=== PATIENT | male | born 1975 | race Caucasian/White ===

== ENCOUNTER 2018-12-22 15:20 | Emergency (ER) | payer BC, OTHER ==
[2018-12-22 15:55] LABS: Absolute Lymphocytes (CBC) 1.3 K/uL (0.7-4.9); Absolute Monocytes 0.4 K/uL (0.1-1.3); Absolute Neutrophil 5.5 K/uL (1.8-8.0); Basophils % 0.5 % (0-1.3); Eosinophils % 2.3 % (0-4.4); Hematocrit 45.2 % (39.6-49.0); Lymphocytes % 17.4 % (15.3-44.8); MPV 8.2 fL (7.6-11.3); Monocytes % 5.8 % (3.3-12.3); RBC Red Blood Cell Count 5.27 M/uL (4.33-5.43)
--- NOTE | 2018-12-22 16:32 | RAD REPORT ---
EXAM DESCRIPTION: CT - Head C Spine Cap Shanon Riggins - 12/22/2018 4:03 pm CLINICAL HISTORY: Head and neck injury with chest and abdominal pain status post fall. Head and neck pain . TECHNIQUE: Computed axial tomography of the head and cervical spine was obtained Computed axial tomography of the chest, abdomen and pelvis was obtained. 100 cc Isovue-300 was given intravenously coronal and sagittal reconstruction was performed. All CT scans are performed using dose optimization technique as appropriate and may include automated exposure control or mA/KV adjustment according to patient size. COMPARISON: CT abdomen 2015. FINDINGS: An intracranial bleed is not seen. The ventricles are normal in caliber. An extra-axial fl uid collection is not noted. A cervical fracture is not seen. No dislocation is seen. A mediastinal hematoma is not noted. A pleural effusion is not present. A lung contusion is not seen. The liver, spleen, pancreas, adrenals, kidneys and bladder do not demonstrate a dramatic injury IMPRESSION: 1. No acute intracranial abnormality is seen 2. A cervical fracture is not visualized. If the patient continues have symptoms to suggest intracran ial/spinal cord pathology then MRI would be recommended. 3. No traumatic injury involving the chest, abdomen or pelvis is seen.
[2018-12-22] MEDS ORDERED: MORPHINE 4 MG/ML SYR ONE (16:35)
[2018-12-22] MEDS ORDERED: ONDANSETRON 4 MG/2 ML VIAL ONE (16:36)
--- NOTE | 2018-12-22 16:37 | EDPHYS ---
Physician Documentation [facility] Name: Flo Singh Age: 43 yrs Sex: Male : 1975 Arrival Date: 12/22/2018 Time: 15:21 Bed 30 Private MD: ED Physician Benjamín Vargas HPI: 12/22 15:30 This 43 yrs old Male presents to ER via Ambulatory with complaints of Fall rn Injury. 15:30 Details of fall: The patient fell from a height, from a ladder, approximately 12 feet. rn Onset: The symptoms/episode began/occurred 1 hour(s) ago. Associated injuries: The patient sustained injury to the head, neck injury, injury to the low back, injury to the abdomen. Severity of symptoms: At their worst the symptoms were moderate, in the emergency department the symptoms are unchanged. The patient has not experienced similar symptoms in the past. The patient has not recently seen a physician. Reports fall from ladder, approx 12 feet indoors, landed on right side, reports thinks LOC for "split second", ambulatory with assistance, reports pain to right side of neck, right collarbone, low back and "between hips". Drove home on his own, then drove himself here. Not on blood thinners, no chronic medical conditions.. Historical: - Allergies: 15:27 No Known Drug Allergies; tw2 - Home Meds: 15:27 None [Active]; tw2 - PSHx: 15:27 None; tw2 - Immunization history:: Adult Immunizations. - Social history:: Smoking status: . - Immunization history: Last tetanus immunization: - up to date. - Ebola Screening: : Patient denies travel to an Ebola-affected area in the 21 days before illness onset. - Family history:: not pertinent. - Hospitalizations: : No recent hospitalization is reported. ROS: 15:30 Constitutional: Negative for fever, chills, and weight loss, Eyes: Negative for injury, rn pain, redness, and discharge, Neck: + neck pain Cardiovascular: Negative for chest pain, palpitations, and edema, Respiratory: Negative for shortness of breath, cough, wheezing, and pleuritic chest pain, Abdomen/GI: Negative for abdominal pain, nausea, vomiting, diarrhea, and constipation, Back: + low back pain and injury MS/Extremity: Negative for injury and deformity, Skin: Negative for injury, rash, and discoloration, Neuro: + mild headache, no focal weakness or paresthesias. Exam: 15:30 Constitutional: This is a well developed, well nourished patient who is awake, alert, rn and in no acute distress. In ccollar, appears uncomfortable. Head/Face: Normocephalic, atraumatic. Eyes: Pupils equal round and reactive to light, extra-ocular motions intact. Lids and lashes normal. Conjunctiva and sclera are non-icteric and not injected. Cornea within normal limits. Periorbital areas with no swelling, redness, or edema. ENT: no oral trauma Neck: in ccollar, no midline tenderness Chest/axilla: Normal chest wall appearance and motion. Nontender with no deformity. No lesions are appreciated. Cardiovascular: Regular rate and rhythm. No pulse deficits. Respiratory: Lungs have equal breath sounds bilaterally, clear to auscultation. No increased work of breathing, no retractions or nasal flaring. Abdomen/GI: soft, non-tender Back: + lumbar perispinal tenderness without stepoff MS/ Extremity: Pulses equal, no cyanosis. Neurovascular intact. Full, normal range of motion. Equal circumference. Neuro: Awake and alert, GCS 15, oriented to person, place, time, and situation. Cranial nerves II-XII grossly intact. Motor strength 5/5 in all extremities. Sensory grossly intact. Cerebellar exam normal. Vital Signs: 15:26 BP 123 / 83; Pulse 86; Resp 17; Temp 99.2(TE); Pulse Ox 99% on R/A; Weight 88.45 kg tw2 (R); Pain 10/10; 16:28 BP 127 / 59; Pulse 88; Resp 17; Pulse Ox 98% on R/A; ae4 16:47 BP 119 / 71; Pulse 85; Resp 16; Pulse Ox 96% on R/A; ae4 Montgomery Coma Score: 15:30 Eye Response: spontaneous(4). Verbal Response: oriented(5). Motor Response: obeys ss commands(6). Total: 15. Trauma Score (Adult): 15:30 Eye Response: spontaneous(1); Verbal Response: oriented(1); Motor Response: obeys ss commands(2); Systolic BP: > 89 mm Hg(4); Respiratory Rate: 10 to 29 per min(4); [place] Score: 15; Trauma Score: 12 MDM: 15:25 Patient medically screened. rn 16:35 Differential diagnosis: closed head injury, contusion, fracture, multiple trauma, rn sprain, strain. Data reviewed: vital signs, nurses notes, lab test result(s), radiologic studies, CT scan, and as a result, I will discharge patient. Counseling: I had a detailed discussion with the patient and/or guardian regarding: the historical points, exam findings, and any diagnostic results supporting the discharge/admit diagnosis, lab results, radiology results, the need for outpatient follow up, to return to the emergency department if symptoms worsen or persist or if there are any questions or concerns that arise at home. Special discussion: Based on the patient's history, exam and DX evaluation, there is no indication for emergent intervention or inpatient TX. It is understood by the patient/guardian that if the SXs persist or worsen they need to return immediately for re-evaluation. I discussed with the patient/guardian in detail that at this point there is no indication for admission to the hospital. It is understood, however, that if the symptoms persist or worsen the patient needs to return immediately for re-evaluation. 12/22 15:29 Order name: Basic Metabolic Panel; Complete Time: 16:13 rn 12/22 15:29 Order name: CBC with Diff; Complete Time: 16:13 rn 12/22 15:29 Order name: CT Traumagram (Head C Spine CAP W Con); Complete Time: 16:34 rn 12/22 15:29 Order name: Type And Screen; Complete Time: 16:34 rn 12/22 16:41 Order name: XRAY Elbow RIGHT 3 view; Complete Time: 17:55 rn 12/22 15:29 Order name: Labs collected and sent; Complete Time: 15:33 rn Administered Medications: 16:20 Drug: Zofran 4 mg Route: IVP; Site: right antecubital; ae4 16:49 Follow up: Response: No adverse reaction ae4 16:27 Drug: morphine 4 mg Route: IVP; Site: right antecubital; ae4 16:49 Follow up: Response: Pain is decreased ae4 Disposition: 12/22/18 16:36 Discharged to Home. Impression: Strain of muscle, fascia and tendon at neck level, Strain of muscle, fascia and tendon of lower back, Contusion of lower back and pelvis. - Condition is Stable. - Discharge Instructions: Back Pain, Adult, Contusion, Cervical Sprain, [id number]. - Prescriptions for Tylenol- Codeine #3 300-30 mg Oral Tablet - take 1 tablet by ORAL route every 6 hours As needed; 20 tablet. Cyclobenzaprine 10 mg Oral Tablet - take 1 tablet by ORAL route every 8 hours As needed; 20 tablet. - Medication Reconciliation Form, Thank You Letter, Antibiotic Education, Prescription Opioid Use form. - Follow up: Private Physician; When: As needed; Reason: Recheck today's complaints, Re-evaluation by your physician. - Problem is new. - Symptoms have improved. Signatures: Dispatcher [employer] EDMS Benjamín Vargas MD MD rn Chad, HERNÁN Edwards RN tw2 Anderson Lamb RN RN ae4 Corrections: (The following items were deleted from the chart) 17:58 16:36 12/22/2018 16:36 Discharged to Home. Impression: Strain of muscle, fascia and ae4 tendon at neck level; Strain of muscle, fascia and tendon of lower back; Contusion of lower back and pelvis. Condition is Stable. Forms are Medication Reconciliation Form, Thank You Letter, Antibiotic Education, Prescription Opioid Use. Follow up: Private Physician; When: As needed; Reason: Recheck today's complaints, Re-evaluation by your physician. Problem is new. Symptoms have improved. rn
--- NOTE | 2018-12-22 16:37 | ER ---
Nurse's Notes [facility] Name: Flo Singh Age: 43 yrs Sex: Male : 1975 Arrival Date: 12/22/2018 Time: 15:21 Bed 30 Private MD: Diagnosis: Strain of muscle, fascia and tendon at neck level;Strain of muscle, fascia and tendon of lower back;Contusion of lower back and pelvis Presentation: 12/22 15:25 Presenting complaint: Patient states: i was working on the ceiling standing on a ladder tw2 and it fell out from under me, i fell about 12 feet, onto concrete, landed on my elbow, right shoulder and hip, but i am having stomach or hip pains like a sharp stabbing pain in my pelvis area, i did loose consciousness but just a few seconds. Transition of care: patient was not received from another setting of care. Onset of symptoms was December 22, 2018. Risk Assessment: Do you want to hurt yourself or someone else? Patient reports no desire to harm self or others. Initial Sepsis Screen: Does the patient meet any 2 criteria? No. Patient's initial sepsis screen is negative. Does the patient have a suspected source of infection? No. Patient's initial sepsis screen is negative. Care prior to arrival: None. 15:25 Method Of Arrival: Ambulatory tw2 15:25 Acuity: PRADIP 2 tw2 15:31 Mechanism of Injury: Fall from ladder. Trauma event details: Injury occurred in the [facility], Injury occurred: at home. Injury occurred: December 22, 2018. Triage Assessment: 15:26 General: Appears uncomfortable, Behavior is cooperative, appropriate for age. Pain: tw2 Complains of pain in right shoulder, arm, pelvis. Trauma Activation: Alert Physician: ED Physician; Name: ; Notified At: ; Arrived At: Physician: General Surgeon; Name: ; Notified At: ; Arrived At: Physician: Radiology; Name: ; Notified At: ; Arrived At: Physician: Respiratory; Name: ; Notified At: ; Arrived At: Physician: Lab; Name: ; Notified At: ; Arrived At: Historical: - Allergies: 15:27 No Known Drug Allergies; tw2 - Home Meds: 15:27 None [Active]; tw2 - PSHx: 15:27 None; tw2 - Immunization history:: Adult Immunizations. - Social history:: Smoking status: . - Immunization history: Last tetanus immunization: - up to date. - Ebola Screening: : Patient denies travel to an Ebola-affected area in the 21 days before illness onset. - Family history:: not pertinent. - Hospitalizations: : No recent hospitalization is reported. Screenin:30 Abuse screen: Denies threats or abuse. Denies injuries from another. Tuberculosis ss screening: No symptoms or risk factors identified. 16:29 Fall Risk No fall in past 12 months (0 pts). No secondary diagnosis (0 pts). IV access ae4 (20 points). Ambulatory Aid- None/Bed Rest/Nurse Assist (0 pts). Gait- Normal/Bed Rest/Wheelchair (0 pts) Mental Status- Oriented to own ability (0 pts). 17:57 Nutritional screening: No deficits noted. ae4 Primary Survey: 15:30 NO uncontrolled hemorrhage observed. Breathing/Chest: Respiratory pattern: regular, ss Respiratory effort: spontaneous, unlabored, Breath sounds: clear, bilaterally. Chest inspection: symmetrical rise and fall of the chest. Circulation: Pulses: palpable right radial artery, right dorsalis pedis artery, left radial artery and left dorsalis pedis artery. Disability Alert. Exposure/Environment: All clothing and personal items were removed. Forensic evidence collection is not deemed to be indicated at this time. Items placed in patient belonging bag. There is no evidence of uncontrolled external bleeding. No obvious injuries are noted at this time. 16:28 Reassessment Breathing/Chest Respiratory pattern Regular Respiratory effort Spontaneous.ae4 Secondary Survey: 15:30 HEENT: No deficits noted. Head No injury/deformity Face No injury/deformity Eyes: No ss injury or deformity noted. Ears: clear Nose: clear Throat: No injury or deformity noted. is clear. Gastrointestinal: No deficits noted. Abdomen is soft, Bowel sounds present in all quadrants. Musculoskeletal: Circulation, motion, and sensation intact. Range of motion: intact in all extremities, Swelling absent. Assessment: 15:22 Reassessment: C collar placed by me. ss 15:31 General: Appears uncomfortable, Behavior is calm, cooperative, Denies fever, feeling ss ill, fatigue, chills. Pain: Complains of pain in suprapubic area, right lower quadrant and left lower quadrant, R shoulder, R side of neck, R clavicle, low back Pain currently is 8 out of 10 on a pain scale. at worst was 10 out of 10 on a pain scale. Quality of pain is described as aching, tender, Pain began suddenly, Is continuous, Aggravated by repositioning. Neuro: Level of Consciousness is awake, alert, obeys commands, Oriented to person, place, time, situation, Speech is normal, Facial symmetry appears normal, Pupils are PERRLA. Neuro: Reports brief LOC after fall. EENT: Ear canal clear on left ear and right ear Nares are clear Oral mucosa is moist. Throat is clear. Cardiovascular: Heart tones S1 S2 present Capillary refill < 3 seconds is brisk in bilateral fingers Pulses are palpable in right radial artery, right dorsalis pedis artery, left radial artery and left dorsalis pedis artery Rhythm is sinus rhythm Chest pain is denied. Respiratory: Airway is patent Respiratory effort is even, unlabored, Respiratory pattern is regular, symmetrical, Breath sounds are clear bilaterally. Denies cough, shortness of breath labored breathing, pain with respiration, pain with cough, pain with movement. GI: Reports lower abdominal pain, Patient currently denies bloating, diarrhea, epigastric pain, nausea, vomiting. : No signs and/or symptoms were reported regarding the genitourinary system. Derm: Skin is intact, is healthy with good turgor, Skin is pink, warm \T\ dry. normal. Derm: Denies tingling. Musculoskeletal: Circulation, motion, and sensation intact. Range of motion: intact in all extremities, Swelling absent. 16:48 Reassessment: Patient is awaiting radiology. Patient states feeling better. ae4 17:00 Reassessment: Radiology Technicians at bedside. ae4 Vital Signs: 15:26 BP 123 / 83; Pulse 86; Resp 17; Temp 99.2(TE); Pulse Ox 99% on R/A; Weight 88.45 kg tw2 (R); Pain 10/10; 16:28 BP 127 / 59; Pulse 88; Resp 17; Pulse Ox 98% on R/A; ae4 16:47 BP 119 / 71; Pulse 85; Resp 16; Pulse Ox 96% on R/A; ae4 Spring Coma Score: 15:30 Eye Response: spontaneous(4). Verbal Response: oriented(5). Motor Response: obeys ss commands(6). Total: 15. Trauma Score (Adult): 15:30 Eye Response: spontaneous(1); Verbal Response: oriented(1); Motor Response: obeys ss commands(2); Systolic BP: > 89 mm Hg(4); Respiratory Rate: 10 to 29 per min(4); [place] Score: 15; Trauma Score: 12 ED Course: 15:21 Patient arrived in ED. rg4 15:25 Benjamín Vargas MD is Attending Physician. rn 15:26 Triage completed. tw2 15:26 Arm band placed on. tw2 15:30 Patient has correct armband on for positive identification. Bed in low position. Call ss light in reach. Patient maintains SpO2 saturation greater than 95% on room air. Pulse ox on. NIBP on. 15:30 Patient maintains SpO2 saturation greater than 95% on room air. Thermoregulation: warm ss blanket given to patient. 15:32 Layla Talavera, RN is Primary Nurse. ca1 15:34 Anderson Lamb, HERNÁN is Primary Nurse. ae4 15:49 Inserted saline lock: 20 gauge in right antecubital area, using aseptic technique. ag Blood collected. 15:49 Basic Metabolic Panel Sent. ag 15:49 CBC with Diff Sent. ag 15:49 Type And Screen Sent. ag 16:04 CT Traumagram (Head C Spine CAP W Con) In Process Unspecified. EDMS 16:09 Patient moved back from [address]. ae4 17:08 XRAY Elbow RIGHT 3 view In Process Unspecified. EDMS 17:56 No provider procedures requiring assistance completed. IV discontinued, intact, ae4 bleeding controlled, No redness/swelling at site. Pressure dressing applied. Administered Medications: 16:20 Drug: Zofran 4 mg Route: IVP; Site: right antecubital; ae4 16:49 Follow up: Response: No adverse reaction ae4 16:27 Drug: morphine 4 mg Route: IVP; Site: right antecubital; ae4 16:49 Follow up: Response: Pain is decreased ae4 Intake: 17:57 PO: 0ml; Total: 0ml. ae4 Outcome: 16:36 Discharge ordered by . rn 17:56 Discharged to home ambulatory. ae4 17:56 Condition: stable 17:56 Discharge instructions given to patient, Instructed on discharge instructions, follow up and referral plans. medication usage, Demonstrated understanding of instructions, follow-up care. 17:58 Patient's length of stay was not longer than 2 hours. ae4 17:58 Patient left the ED. ae4 Signatures: Dispatcher [employer] EDMS Benjamín Vargas MD MD rn Smirch, Shelby, RN RN Sarina Allen Tara, RN RN tw2 Bebe Hammond rg4 Layla Talavera RN RN ca1 Anderson Lamb RN RN ae4
--- NOTE | 2018-12-22 17:44 | RAD REPORT ---
EXAM DESCRIPTION: RAD - Elbow Right 3 View - 12/22/2018 5:13 pm CLINICAL HISTORY: Right elbow pain status post injury FINDINGS: No fracture or dislocation is seen.
== END 2018-12-22 17:58 | disposition home or self-care (01) ==
LOC: ER 15:20
DX: S16.1XXA Strain of muscle, fascia and tendon at neck level, initial encounter (principal); S39.012A Strain of muscle, fascia and tendon of lower back, initial encounter; S39.013A Strain of muscle, fascia and tendon of pelvis, initial encounter; W17.89XA Other fall from one level to another, initial encounter; Y93.89 Activity, other specified; Y92.9 Unspecified place or not applicable
CPT/HCPCS: 36415; 70450; 71260; 72125; 74177; 80048; 85025; 86850; 86900; 86901; 96374; 96375; 99285; J2405

== ENCOUNTER 2024-03-23 11:29 | Inpatient (IN) | payer OTHER ==
[2024-03-23] MEDS ORDERED: ONDANSETRON 4 MG/2 ML VIAL ONE ×2 (13:14→14:48)
[2024-03-23] MEDS ORDERED: MORPHINE 4 MG/ML SYR ONE ×2 (13:14→14:48)
[2024-03-23] MEDS ORDERED: FAMOTIDINE 20 MG/2 ML VIAL IV ONE (13:14)
[2024-03-23] MEDS ORDERED: NA CHLORIDE 0.9% 1,000 ML ONE (13:14)
[2024-03-23 13:19] LABS: Absolute Eosinophils 0.1 K/uL (0-0.5); Absolute Lymphocytes (CBC) 1.1 K/uL (0.7-4.9); Absolute Monocytes 0.5 K/uL (0.1-1.3); Basophils % 0.3 % (0-1.3); Eosinophils % 1.3 % (0-4.4); Hematocrit 43.3 % (39.6-49.0); Hemoglobin 14.4 g/dL (13.6-17.9); Lymphocytes % 12.7 % (15.3-44.8); MCHC 33.3 g/dL (32.0-36.0); MCV 89.8 fL (80-100); MPV 7.8 fL (7.6-11.3); Monocytes % 5.3 % (3.3-12.3); Neutrophils % 80.4 % (41.7-73.7); Platelets 178 thou/uL (152-406); RBC Red Blood Cell Count 4.82 M/uL (4.33-5.43)
[2024-03-23 13:31] LABS: Specific Gravity 1.007 (1.005-1.030); Urine Bilirubin NEGATIVE (Negative); Urine Blood Negative (Negative); Urine Clarity Clear (Clear); Urine Color Light-Yellow (Yellow); Urine Glucose NEGATIVE (Negative); Urine Ketones NEGATIVE (Negative); Urine Microscopic Reflex YN NO UMIC; Urine Nitrite NEGATIVE (Negative); Urine Protein NEGATIVE (Negative); Urine Urobilinogen Normal (Normal)
[2024-03-23 13:35] LABS: Albumin 3.8 g/dL (3.4-5.0); Albumin/Globulin Ratio 1.1 (1.1-1.8); Anion Gap 8.7 mEq/L (5.0-15.0); Bilirubin Total 0.7 mg/dL (0.2-1.0); Globulin 3.6 g/dL (2.3-3.5); Potassium 3.7 mEq/L (3.5-5.1); Protein, Total 7.4 g/dL (6.4-8.2)
--- NOTE | 2024-03-23 14:31 | RAD REPORT ---
EXAM DESCRIPTION: CT - Abdomen Pelvis W Contrast - 03/23/2024 2:08 pm CLINICAL HISTORY: ABD PAIN COMPARISON: No comparisons TECHNIQUE: Thin cut axial CT imaging of the abdomen and pelvis was performed following intravenous a dministration of arthritic contrast. Multiplanar reformats were generated and reviewed. All CT scans are performed using dose optimization technique as appropriate and may include automated exposure control or mA/KV adjustment according to patient size. FINDINGS: No suspicious findings in the lung bases. The liver, spleen, adrenal glands, and pancreas show no suspicious findings. Gallbladder and biliary tree are also without suspicious finding. Symmetric renal function is seen with no hydronephrosis or suspicious renal mass. No dilated bowel loops. Mild distal colonic diverticulosis. Inflammatory changes surrounding an ill-d efined diverticulum along the posterior wall of the proximal sigmoid colon with focal wall thickening and adjacent fat stranding. No discrete extraluminal gas or fluid collections. No free air, free flu id or inflammatory stranding. No hernia, mass or bulky lymphadenopathy. Mild prostatomegaly and calci fications. The urinary bladder is without significant finding. No suspicious bony findings. IMPRESSION: Findings of acute sigmoid diverticulitis, without discrete extraluminal gas or abnormal collections.
[2024-03-23] MEDS ORDERED: CEFTRIAXONE 2000 MG/VIAL ONE (14:37)
[2024-03-23] MEDS ORDERED: METRONIDAZOLE 500mg IVPB 500 MG/100 ML BAG IV ONE (14:38)
[2024-03-23] MEDS ORDERED: CIPROFLOXACIN 400mg IV 400 MG/200 ML BAG IV ONE ×2 (14:38→20:00)
--- NOTE | 2024-03-23 15:22 | ER ---
Nurse's Notes [facility] Name: Flo Singh Age: 48 yrs Sex: Male : 1975 Arrival Date: 03/23/2024 Time: 11:29 Bed 17 Private MD: Diagnosis: Diverticulitis of large intestine without perforation or abscess without bleeding-SIGMOID;Abdominal tenderness;Acute abdomen Presentation: 03/23 11:45 Chief complaint: Patient states: Pelvic pain since yesterday with dysuria and nausea. ll1 Coronavirus screen: Client denies travel out of the [place] in the last 14 days. At this time, the client does not indicate any symptoms associated with coronavirus-19. Ebola Screen: Patient denies travel to an Ebola-affected area in the 21 days before illness onset. Initial Sepsis Screen: Does the patient meet any 2 criteria? No. Patient's initial sepsis screen is negative. Does the patient have a suspected source of infection? No. Patient's initial sepsis screen is negative. Risk Assessment: Do you want to hurt yourself or someone else? Patient reports no desire to harm self or others. Onset of symptoms was March 22, 2024. 11:45 Method Of Arrival: Ambulatory ll1 11:45 Acuity: PRADIP 3 ll1 Triage Assessment: 11:45 General: Appears uncomfortable, Behavior is calm. Pain: Complains of pain in pelvis ll1 Quality of pain is described as aching. : Reports burning with urination, pain in suprapubic area. Historical: - Allergies: 11:44 No Known Allergies; ll1 - PMHx: 11:44 None; ll1 - PSHx: 11:44 back surgery; ll1 - Immunization history:: Adult Immunizations up to date. - Infectious Disease History:: Denies. - Social history:: Smoking status: Reported history of juuling and/or vaping. - Family history:: not pertinent. Screenin:27 [facility] ED Fall Risk Assessment (Adult) History of falling in the last 3 months, tm6 including since admission No falls in past 3 months (0 pts) Confusion or Disorientation No (0 pts) Intoxicated or Sedated No (0 pts) Impaired Gait No (0 pts) Mobility Assist Device Used No (0 pt) Altered Elimination No (0 pt) Score/Fall Risk Level 0 - 2 = Low Risk Oriented to surroundings, Maintained a safe environment, Educated pt \T\ family on fall prevention, incl call for assistance when getting out of bed. Abuse screen: Denies threats or abuse. Denies injuries from another. Nutritional screening: No deficits noted. Tuberculosis screening: No symptoms or risk factors identified. Assessment: 13:27 General: Appears in no apparent distress. Behavior is calm, cooperative. Pain: tm6 Complains of pain in suprapubic area Pain does not radiate. Pain currently is 7 out of 10 on a pain scale. Quality of pain is described as sharp, Pain began 1 day ago. Neuro: Level of Consciousness is awake, alert, obeys commands, Oriented to person, place, time, situation. Cardiovascular: Reports chest pain, chest pain yesterday Patient's skin is warm and dry. Rhythm is regular. Respiratory: Airway is patent Respiratory effort is even, unlabored, Respiratory pattern is regular, symmetrical. GI: Abdomen is round Bowel sounds present X 4 quads. Abd is soft Abdomen is tender to palpation in suprapubic area Reports Pain is 7 out of 10 on a pain scale. : Reports difficulty urinating. EENT: No signs and/or symptoms were reported regarding the EENT system. Derm: No signs and/or symptoms reported regarding the dermatologic system. Musculoskeletal: No signs and/or symptoms reported regarding the musculoskeletal system. 15:00 Reassessment: Patient and/or family updated on plan of care and expected duration. Pain tm6 level reassessed. Patient is alert, oriented x 3, equal unlabored respirations, skin warm/dry/pink. 16:31 Reassessment: report faxed to [facility], confirmed by Breanne. tm6 Vital Signs: 11:45 BP 128 / 86; Pulse 92; Resp 17; Temp 99; Pulse Ox 100% ; Weight 111.13 kg; Height 6 ft. ll1 0 in. ; Pain 5/10; 13:32 BP 128 / 79; Pulse 87; Pulse Ox 99% on R/A; Pain 7/10; tm6 15:00 BP 133 / 79; Pulse 80; Pulse Ox 99% on R/A; Pain 9/10; tm6 16:58 BP 129 / 86; Pulse 81; Pulse Ox 100% ; Pain 5/10; tm6 11:45 Body Mass Index 33.23 (111.13 kg, 182.88 cm) ll1 11:45 Pain Scale: Adult ll1 13:32 Pain Scale: Adult tm6 15:00 Pain Scale: Adult tm6 16:58 Pain Scale: Adult tm6 ED Course: 11:31 Patient arrived in ED. mr 11:44 Cristofer Herman MD is Attending Physician. félix 11:46 Triage completed. ll1 11:46 Arm band placed on. ll1 12:56 Patient placed in an exam room, on a stretcher. ll1 13:04 Judi Sloan, RN is Primary Nurse. tm6 13:10 CBC with Diff Sent. tm6 13:10 CMP Sent. tm6 13:11 Lipase Sent. tm6 13:11 Inserted saline lock: 20 gauge in right antecubital area, using aseptic technique. tm6 Blood collected. Flushed with 10 mL NS. 13:26 Urinalysis w/ reflexes Sent. tm6 13:26 Lipase Sent. tm6 13:26 CMP Sent. tm6 13:27 Patient has correct armband on for positive identification. Bed in low position. Call tm6 light in reach. Side rails up X 1. Provided Education on: use of call french. Client placed on continuous cardiac and pulse oximetry monitoring. NIBP monitoring applied. belt buckle maker on. Pulse ox on. NIBP on. Door closed. Noise minimized. Lights dimmed. Warm blanket given. 13:27 EKG done, by ED staff, reviewed by Cristofer Herman MD. tm6 14:10 CT Abd/Pelvis - IV Contrast Only In Process Unspecified. EDMS 15:18 Armond Villanueva MD is Hospitalizing Provider. [facility] 16:59 No provider procedures requiring assistance completed. Patient admitted, IV remains in tm6 place. Administered Medications: 13:26 Drug: NS 0.9% IV 1000 ml IV at 1 bolus Per protocol; 1000 mL bolus Route: IV; Rate: 1 tm6 bolus; Site: right antecubital; 14:59 Follow up: Response: No adverse reaction; IV Status: Completed infusion; IV Intake: tm6 1000ml 13:26 Drug: Famotidine IVP 20 mg IVP once; dilute with 10 mL 0.9% NaCl; give over 2 minutes tm6 Route: IVP; Site: right antecubital; 15:00 Follow up: Response: No adverse reaction tm6 13:27 Drug: Ondansetron IVP 4 mg IVP once; over 2 minutes Route: IVP; Site: right antecubital;tm6 15:00 Follow up: Response: No adverse reaction tm6 13:27 Drug: morphine IVP or IV 4 mg IVP once over 4 mins Route: IVP; Infused Over: 4 mins; tm6 Site: right antecubital; 14:59 Follow up: Response: No adverse reaction; Pain is decreased tm6 14:46 Drug: Rocephin IV 2 grams IV at per protocol once; Given slow IV push per pharmarcy tm6 instructions Route: IV; Rate: per protocol; Site: right antecubital; 15:00 Follow up: Response: Nausea is increased tm6 14:46 Drug: metroNIDAZOLE IVPB 500 mg 100 ml IVPB at 200 ml/hr once over 30 mins Volume: 100 tm6 ml; Route: IVPB; Rate: 200 ml/hr; Infused Over: 30 mins; Site: right antecubital; 16:01 Follow up: Response: No adverse reaction; IV Status: Completed infusion; IV Intake: tm6 100ml 14:59 Drug: morphine IVP or IV 4 mg IVP once over 4 mins Route: IVP; Infused Over: 4 mins; tm6 Site: right antecubital; 16:02 Follow up: Response: No adverse reaction tm6 14:59 Drug: Ondansetron IVP 4 mg IVP once; over 2 minutes Route: IVP; Site: right antecubital;tm6 16:02 Follow up: Response: No adverse reaction tm6 16:02 Drug: Ciprofloxacin IVPB 400 mg 200 ml IVPB once over 60 mins Volume: 200 ml; Route: tm6 IVPB; Infused Over: 60 mins; Site: right antecubital; Medication: 13:27 VIS not applicable for this client. tm6 Intake: 14:59 IV: 1000ml; Total: 1000ml. tm6 16:01 IV: 100ml; Total: 1100ml. tm6 Outcome: 15:22 Decision to Hospitalize by Provider. félix 16:59 Admitted to Med/surg accompanied by tech, room 209, with chart, tm6 16:59 Condition: stable 16:59 Instructed on the need for admit, 16:59 Patient left the ED. tm6 Signatures: Dispatcher [employer] Cristofer Cooper MD MD cha Rivera [place], [facility] Reg mr John Paul Monica, RN RN ll1 Judi Sloan RN RN tm6
--- NOTE | 2024-03-23 15:22 | EDPHYS ---
Physician Documentation [facility] Name: Flo Singh Age: 48 yrs Sex: Male : 1975 Arrival Date: 03/23/2024 Time: 11:29 Bed 17 Private MD: ED Physician Cristofer Herman HPI: 03/23 15:13 This 48 yrs old Male presents to ER via Ambulatory with complaints of félix Abdominal Pain. 15:13 The patient presents with abdominal pain in the upper abdomen, in the lower abdomen, félix abdominal distention in the upper abdomen, in the lower abdomen. Onset: The symptoms/episode began/occurred 1 day(s) ago. The symptoms do not radiate. Associated signs and symptoms: Pertinent positives: nausea. The symptoms are described as constant, crampy. Modifying factors: The symptoms are alleviated by nothing, the symptoms are aggravated by movement, pressure, walking. Severity of pain: At its worst the pain was moderate in the emergency department the pain is unchanged. The patient has not experienced similar symptoms in the past. Historical: - Allergies: 11:44 No Known Allergies; ll1 - PMHx: :44 None; ll1 - PSHx: 11:44 back surgery; ll1 - Immunization history:: Adult Immunizations up to date. - Infectious Disease History:: Denies. - Social history:: Smoking status: Reported history of juuling and/or vaping. - Family history:: not pertinent. ROS: 15:13 Constitutional: Negative for fever, chills, and weight loss, Eyes: Negative for injury, félix pain, redness, and discharge, ENT: Negative for injury, pain, and discharge, Neck: Negative for injury, pain, and swelling, Cardiovascular: Negative for chest pain, palpitations, and edema, Respiratory: Negative for shortness of breath, cough, wheezing, and pleuritic chest pain, Back: Negative for injury and pain, : Negative for injury, bleeding, discharge, and swelling, MS/Extremity: Negative for injury and deformity, Skin: Negative for injury, rash, and discoloration, Neuro: Negative for headache, weakness, numbness, tingling, and seizure, Psych: Negative for depression, anxiety, suicide ideation, homicidal ideation, and hallucinations, Allergy/Immunology: Negative for hives, rash, and allergies, Endocrine: Negative for neck swelling, polydipsia, polyuria, polyphagia, and marked weight changes, Hematologic/Lymphatic: Negative for swollen nodes, abnormal bleeding, and unusual bruising, 15:13 Abdomen/GI: Positive for abdominal pain, nausea, vomiting, abdominal distension, of the right upper quadrant, left upper quadrant, right lower quadrant and left lower quadrant, Exam: 15:13 Constitutional: This is a well developed, well nourished patient who is awake, alert, félix and in no acute distress. Head/Face: Normocephalic, atraumatic. Eyes: Pupils equal round and reactive to light, extra-ocular motions intact. Lids and lashes normal. Conjunctiva and sclera are non-icteric and not injected. Cornea within normal limits. Periorbital areas with no swelling, redness, or edema. ENT: Nares patent. No nasal discharge, no septal abnormalities noted. Tympanic membranes are normal and external auditory canals are clear. Oropharynx with no redness, swelling, or masses, exudates, or evidence of obstruction, uvula midline. Mucous membranes moist. Neck: Trachea midline, no thyromegaly or masses palpated, and no cervical lymphadenopathy. Supple, full range of motion without nuchal rigidity, or vertebral point tenderness. No Meningismus. Chest/axilla: Normal chest wall appearance and motion. Nontender with no deformity. No lesions are appreciated. Cardiovascular: Regular rate and rhythm with a normal S1 and S2. No gallops, murmurs, or rubs. Normal PMI, no JVD. No pulse deficits. Respiratory: Lungs have equal breath sounds bilaterally, clear to auscultation and percussion. No rales, rhonchi or wheezes noted. No increased work of breathing, no retractions or nasal flaring. Back: No spinal tenderness. No costovertebral tenderness. Full range of motion. Male : Normal genitalia with no discharge or lesions. Skin: Warm, dry with normal turgor. Normal color with no rashes, no lesions, and no evidence of cellulitis. 15:24 ECG was reviewed by the Attending Physician. [facility] 15:25 ECG was reviewed by the Attending Physician. [facility] Vital Signs: 11:45 BP 128 / 86; Pulse 92; Resp 17; Temp 99; Pulse Ox 100% ; Weight 111.13 kg; Height 6 ft. ll1 0 in. ; Pain 5/10; 13:32 BP 128 / 79; Pulse 87; Pulse Ox 99% on R/A; Pain 7/10; tm6 15:00 BP 133 / 79; Pulse 80; Pulse Ox 99% on R/A; Pain 9/10; tm6 16:58 BP 129 / 86; Pulse 81; Pulse Ox 100% ; Pain 5/10; tm6 11:45 Body Mass Index 33.23 (111.13 kg, 182.88 cm) ll1 11:45 Pain Scale: Adult ll1 13:32 Pain Scale: Adult tm6 15:00 Pain Scale: Adult tm6 16:58 Pain Scale: Adult tm6 MDM: 11:44 Patient medically screened. félix 15:17 Differential diagnosis: diverticulitis, gastritis, Mesenteric ischemia or infarction, félix non-specific abd pain, pancreatitis, Peritonitis, Prostatitis, Pyelonephritis, Ureterolithiasis, urinary tract infection. Data reviewed: vital signs, nurses notes, lab test result(s), EKG, radiologic studies, CT scan. Consideration of Admission/Observation Patient was admitted/placed on observation. Escalation of care including admission/observation considered. I considered the following discharge prescriptions or medication management in the emergency department Medications were administered in the Emergency Department. See MAR. Independent interpretation of the following test(s) in the Emergency Department EKG: See my EKG interpretation above. Test considered but Not performed: Ultrasound NO ABD USG. Historians other than the Patient: Family Member: WELL INFORMED. Care significantly affected by the following chronic conditions: Obesity. Counseling: I had a detailed discussion with the patient and/or guardian regarding the historical points, exam findings, and any diagnostic results supporting the discharge/admit diagnosis, lab results, radiology results, the need for further work-up and treatment in the hospital. 03/23 11:46 Order name: CBC with Diff; Complete Time: 14:30 félix 03/23 11:46 Order name: CMP; Complete Time: 14:30 félix 03/23 11:46 Order name: Lipase; Complete Time: 14:30 félix 03/23 11:46 Order name: Urinalysis w/ reflexes; Complete Time: 14:30 félix 03/23 15:25 Order name: Troponin High Sensitivity; Complete Time: 16:56 félix 03/23 16:05 Order name: Urinalysis w/ reflexes EDMS 03/23 16:05 Order name: Basic Metabolic Panel EDMS 03/23 16:05 Order name: Basic Metabolic Panel EDMS 03/23 16:05 Order name: Basic Metabolic Panel EDMS 03/23 16:05 Order name: Basic Metabolic Panel EDMS 03/23 16:05 Order name: Basic Metabolic Panel EDMS 03/23 16:05 Order name: Basic Metabolic Panel EDMS 03/23 16:05 Order name: Basic Metabolic Panel EDMS 03/23 16:05 Order name: Basic Metabolic Panel EDMS 03/23 16:05 Order name: CBC with Automated Diff EDMS 03/23 16:05 Order name: CBC with Automated Diff EDMS 03/23 16:05 Order name: CBC with Automated Diff EDMS 03/23 16:05 Order name: CBC with Automated Diff EDMS 03/23 16:05 Order name: CBC with Automated Diff EDMS 03/23 16:05 Order name: CBC with Automated Diff EDMS 03/23 16:05 Order name: CBC with Automated Diff EDMS 03/23 16:05 Order name: CBC with Automated Diff EDMS 03/23 16:05 Order name: Magnesium EDMS 03/23 16:05 Order name: Magnesium EDMS 03/23 16:05 Order name: Magnesium EDMS 03/23 16:05 Order name: Magnesium EDMS 03/23 16:05 Order name: Magnesium EDMS 03/23 16:05 Order name: Magnesium EDMS 03/23 16:05 Order name: Magnesium EDMS 03/23 16:05 Order name: Magnesium EDMS 03/23 16:05 Order name: Phosphorus EDMS 03/23 16:05 Order name: Phosphorus EDMS 03/23 16:05 Order name: Phosphorus EDMS 03/23 16:05 Order name: Phosphorus EDMS 03/23 16:05 Order name: Phosphorus EDMS 03/23 16:05 Order name: Phosphorus EDMS 03/23 16:05 Order name: Phosphorus EDMS 03/23 16:05 Order name: Phosphorus EDMS 03/23 16:05 Order name: Troponin High Sensitivity EDMS 03/23 16:05 Order name: Troponin High Sensitivity EDMS 03/23 16:05 Order name: Troponin High Sensitivity EDMS 03/23 11:46 Order name: CT Abd/Pelvis - IV Contrast Only; Complete Time: 15:07 félix 03/23 11:46 Order name: EKG; Complete Time: 11:46 félix 03/23 15:25 Order name: EKG; Complete Time: 15:25 [facility] 03/23 16:05 Order name: CONS Physician Consult EDTN 03/23 11:46 Order name: IV Saline Lock; Complete Time: 13:10 [facility] 03/23 11:46 Order name: Labs collected and sent; Complete Time: 13:10 [facility] 03/23 11:46 Order name: EKG - Nurse/Tech; Complete Time: 13:26 [facility] 03/23 15:25 Order name: EKG - Nurse/Tech; Complete Time: 15:44 [facility] 03/23 15:52 Order name: NPO; Complete Time: 15:52 [facility] EC:25 Rate is 88 beats/min. Rhythm is regular. QRS [place] is Normal. VA interval is normal. QRS félix interval is normal. QT interval is normal. No Q waves. T waves are Normal. ST Segment is depressed in leads II, III, aVF. Clinical impression: NSR w/ Non-specific ST/T Changes. Interpreted by me. Reviewed by me. Administered Medications: 13:26 Drug: NS 0.9% IV 1000 ml IV at 1 bolus Per protocol; 1000 mL bolus Route: IV; Rate: 1 tm6 bolus; Site: right antecubital; 14:59 Follow up: Response: No adverse reaction; IV Status: Completed infusion; IV Intake: tm6 1000ml 13:26 Drug: Famotidine IVP 20 mg IVP once; dilute with 10 mL 0.9% NaCl; give over 2 minutes tm6 Route: IVP; Site: right antecubital; 15:00 Follow up: Response: No adverse reaction tm6 13:27 Drug: Ondansetron IVP 4 mg IVP once; over 2 minutes Route: IVP; Site: right antecubital;tm6 15:00 Follow up: Response: No adverse reaction tm6 13:27 Drug: morphine IVP or IV 4 mg IVP once over 4 mins Route: IVP; Infused Over: 4 mins; tm6 Site: right antecubital; 14:59 Follow up: Response: No adverse reaction; Pain is decreased tm6 14:46 Drug: Rocephin IV 2 grams IV at per protocol once; Given slow IV push per pharmarcy tm6 instructions Route: IV; Rate: per protocol; Site: right antecubital; 15:00 Follow up: Response: Nausea is increased tm6 14:46 Drug: metroNIDAZOLE IVPB 500 mg 100 ml IVPB at 200 ml/hr once over 30 mins Volume: 100 tm6 ml; Route: IVPB; Rate: 200 ml/hr; Infused Over: 30 mins; Site: right antecubital; 16:01 Follow up: Response: No adverse reaction; IV Status: Completed infusion; IV Intake: tm6 100ml 14:59 Drug: morphine IVP or IV 4 mg IVP once over 4 mins Route: IVP; Infused Over: 4 mins; tm6 Site: right antecubital; 16:02 Follow up: Response: No adverse reaction tm6 14:59 Drug: Ondansetron IVP 4 mg IVP once; over 2 minutes Route: IVP; Site: right antecubital;tm6 16:02 Follow up: Response: No adverse reaction tm6 16:02 Drug: Ciprofloxacin IVPB 400 mg 200 ml IVPB once over 60 mins Volume: 200 ml; Route: tm6 IVPB; Infused Over: 60 mins; Site: right antecubital; Disposition Summary: 03/23/24 15:22 Hospitalization Ordered Notes: Hospitalization Status: Inpatient Admission félix Provider: Armond Villanueva cha Location: Telemetry/MedSurg (Inpatient) félix Condition: Fair félix Problem: new félix Symptoms: are unchanged félix Bed/Room Type: [facility] Room Assignment: 209(03/23/24 16:15) ll1 Diagnosis - Diverticulitis of large intestine without perforation or abscess without bleeding - félix SIGMOID - Abdominal tenderness félix - Acute abdomen félix Forms: - Medication Reconciliation Form félix - SBAR form félix - Leadership Thank You Letter félix Signatures: Dispatcher [employer] EDCristofer Dixon MD MD cha Lewis, Lynsay, RN RN ll1 Judi Sloan RN RN tm6 Corrections: (The following items were deleted from the chart) 11:46 11:46 CBC+H.LAB.BRZ ordered. EDMS EDMS 11:46 11:46 COMPREHENSIVE METABOLIC PANEL+C.LAB.BRZ ordered. EDMS EDMS 11:46 11:46 LIPASE+C.LAB.BRZ ordered. EDMS EDMS 11:46 11:46 Urinalysis+U.LAB.BRZ ordered. EDMS EDMS 15:25 15:25 Troponin High Sensitivity+C.LAB.BRZ ordered. EDMS EDMS 15:26 15:24 Rate is 88 beats/min. Rhythm is regular. QRS [place] is Normal. [place] interval is félix normal. QRS interval is normal. QT interval is normal. No Q waves. T waves are Normal. Clinical impression: NSR w/ Non-specific ST/T Changes and No evidence of ischemia. Interpreted by me. Reviewed by me. [facility] 16:15 15:22 félix ll1
--- NOTE | 2024-03-23 15:44 | P.HP ---
Certification for Inpatient Patient admitted to: Inpatient With expected LOS: >2 Midnights Patient will require the following post-hospital care: None Practitioner: I am a practitioner with admitting privileges, knowledge of patient current condition, hospital course, and medical plan of care. Services: Services provided to patient in accordance with Admission requirements found in Title 42 Section 412.3 of the Code of Federal Regulations Patient History Date of Service: 03/23/24 Reason for admission: Acute diverticulitis, acute abdomen History of Present Illness: Flo Singh is a 48 year old male with no significant past medical history who presents to the ED with chief complaint of upper and lower abdominal distention and pain that started 1 day ago. He reports standing up from the couch to plug in his computer when severe lower abdominal pain occurred causing his to lay down in bed. He reports trying ex-lax without relief. CT abdomen pelvis with contrast reports "Findings of acute sigmoid diverticulitis, without discrete extraluminal gas or abnormal collections." He states he had a clean colonoscopy a few years ago and was examined early since his father of colon cancer. He also has family history of heart attacks, his father's fifth heart attack started with abdominal pain and he was worried he was having a heart attack. He reports PND, exertional SOB and occasional leg swelling, but not exertional SOB. Laboratory evaluation unremarkable, initial vital BP 128 / 86; Pulse 92; Resp 17, temp 99; Pulse Ox 100%, lung sounds clear bilaterally on room air, afebrile. Flo will be admitted to hospitalist service for further treatment of acute sigmoid diverticulitis, Dr. Finn consulted. Allergies No Known Drug Allergies Allergy (Unverified 06/25/14 00:48) Unknown - Past Medical/Surgical History Past Medical History: Patient denies medical history Past Surgical History: Patient denies surgical history - Social History Smoking Status: Current every day smoker Alcohol use: Yes CD- Drugs: No Review of Systems General: Chills, Sweats Respiratory: Shortness of Breath Gastrointestinal: Abdominal Pain Physical Examination - Physical Exam General: Alert, In no apparent distress, Oriented x3 HEENT: Atraumatic, Normocephalic, PERRLA Neck: Supple, 2+ carotid pulse no bruit, JVD not distended Respiratory: Clear to auscultation bilaterally, Normal air movement Cardiovascular: No edema, Normal pulses, Regular rate/rhythm, Normal S1 S2 Capillary refill: <2 Seconds Gastrointestinal: Normal bowel sounds, Distended, Tenderness Musculoskeletal: No clubbing Integumentary: No rashes - Studies Laboratory Data (last 24 hrs) 03/23/24 03/23/24 13:10 13:10 WBC 8.70 Hgb 14.4 Hct 43.3 Plt Count 178 Sodium 136 Potassium 3.7 BUN 9 Creatinine 0.99 Glucose 101 Total Bilirubin 0.7 AST 12 L ALT 37 Alkaline Phosphatase 77 Lipase 26 Assessment and Plan - Plan Assessment and plan Acute sigmoid diverticulitis without perforation or abscess Lower abdominal pain Nausea -Dr. Finn consulted -IV fluids -N.p.o. -Cipro and Flagyl -Pain control antiemetics -Continuous telemetry -Reports clean colonoscopy several years ago, father of colon cancer Substance abuse -Cigarettes, vape, and drinking beer -Cessation education provided DVT PPx SCDs Full code LOS 2 days Discharge Plan: Home Plan to discharge in: 48 Hours - Advance Directives Does patient have a Living Will: No Does patient have a Durable POA for Healthcare: No
[2024-03-23] MEDS ORDERED: NA CHLORIDE 0.9% 100 ML ONE (15:54)
[2024-03-23] MEDS ORDERED: PIPERACIL/TAZO 4.5 GM VIAL IV ONE (15:54)
[2024-03-23] MEDS ORDERED: SODIUM CHLORIDE 0.9% 10ML INJ IV PRN (15:59)
[2024-03-23] MEDS ORDERED: MORPHINE 4 MG/ML SYR IV PRN (16:08)
[2024-03-23] MEDS ORDERED: ONDANSETRON 4 MG/2 ML VIAL IV PRN (16:08)
[2024-03-23] MEDS: PANTOPRAZOLE 40 MG INJ IVP SCH (17:21)
[2024-03-23] MEDS: NA CHLORIDE 0.9% 1,000 ML IV SCH (17:21)
[2024-03-23] MEDS: MORPHINE 4 MG/ML SYR IV ONE (17:22)
[2024-03-23 17:26] VITALS: O2SAT 100
[2024-03-23 17:29] VITALS: BMI 33.2
[2024-03-23] MEDS: MORPHINE 4 MG/ML SYR IV PRN (17:36)
--- NOTE | 2024-03-23 22:29 | P.CNS ---
Date of Consult: 03/23/24 PC: I was asked to see this 48-year-old gentleman in regards to his sudden onset lower abdominal pain. HPC: Patient was at home yesterday, went to stand up, and experienced severe lower abdominal pain. Doubled him over. Over the last 24 hours, pain is intensified and he came to the emergency room for evaluation. PSHx: States he is otherwise a healthy male. Never had pain like this before. Has had a colonoscopy in the past, but did not show anything. PMHx: Negative Social Hx: Allergic to ceftriaxone Sys R: No cough, wheeze, shortness of breath. No chest pain or palpitations. No urinary complaints O/E: Awake alert vital signs are stable HEENT: Negative Chest: Air entry equal bilaterally Abd: Tender in the suprapubic area, has some guarding there. Does not have generalized peritoneal signs. [place]: Intact Data: CT scan demonstrates acute diverticulitis Impression: Patient has acute diverticulitis Plan: The patient will be given just small sips of water for now. We will keep him on antibiotics and pain medicine with IV fluids. He will be followed with serial exams. He does not require acute intervention at this time.
[2024-03-23] MEDS ORDERED: METRONIDAZOLE 500mg IVPB 500 MG/100 ML BAG IV SCH (23:00)
[2024-03-24] MEDS: METRONIDAZOLE 500mg IVPB 500 MG/100 ML BAG IV SCH (00:28)
[2024-03-24 06:29] LABS: Absolute Eosinophils 0.1 K/uL (0-0.5); Absolute Lymphocytes (CBC) 1.3 K/uL (0.7-4.9); Absolute Monocytes 0.4 K/uL (0.1-1.3); Absolute Neutrophil 5.2 K/uL (1.8-8.0); Basophils % 0.4 % (0-1.3); Eosinophils % 1.9 % (0-4.4); Hematocrit 38.2 % (39.6-49.0); Hemoglobin 13.1 g/dL (13.6-17.9); Lymphocytes % 18.6 % (15.3-44.8); MCH 30.5 pg (27.0-35.0); MCHC 34.3 g/dL (32.0-36.0); MCV 88.9 fL (80-100); MPV 7.5 fL (7.6-11.3); Monocytes % 6.1 % (3.3-12.3); Nucleated Red Blood Cells % 0.1 % (0-0); Platelets 162 thou/uL (152-406); RBC Red Blood Cell Count 4.29 M/uL (4.33-5.43); Red Cell Distribution Width 13.6 % (12.1-15.2)
[2024-03-24 06:48] LABS: Anion Gap 6.8 mEq/L (5.0-15.0); Phosphorus 2.6 mg/dL (2.5-4.9); Potassium 3.8 mEq/L (3.5-5.1); Troponin High Sensitivity 4.7 pg/mL (<58.9)
--- NOTE | 2024-03-24 11:55 | P.PN ---
Date of Service: 03/24/24 Subjective Awake and feeling better Complaining of headache Abdominal pain improved No nausea ROS 10 point ROS as noted above, otherwise negative Physical Exam General: Alert and Oriented x3, In no apparent distress, afebrile HEENT: Atraumatic, Normocephalic, PERRLA Neck: Supple, 2+ carotid pulse no bruit, JVD not distended Respiratory: Clear to auscultation bilaterally, symmetrical chest wall movement, on room air Cardiovascular: No edema, RRR, Normal S1 S2, no murmur noted Capillary refill: <2 Seconds Gastrointestinal: Normal bowel sounds, soft on palpation, distended, Tenderness Musculoskeletal: No clubbing Integumentary: No rashes Vitals Reviewed Problem list Acute sigmoid diverticulitis without perforation or abscess Lower abdominal pain Nausea Substance abuse Assessment and Plan Acute sigmoid diverticulitis without perforation or abscess Lower abdominal pain Nausea -Dr. Finn following, no surgery needed -continue IV fluids -N.p.o. with sips of water -continue Cipro and Flagyl -Pain control/ antiemetics -Continuous telemetry -Reports clean colonoscopy several years ago, father of colon cancer Substance abuse -Cigarettes, vape, and drinking beer -Cessation education provided DVT PPx SCDs Full code LOS 2 days Discharge Plan: Home Plan to discharge in: 48 Hours
--- NOTE | 2024-03-24 15:02 | P.PN ---
Date of Service: 03/24/24 S: Patient in good spirits, abdomen feels much better than yesterday, still having some pain but is much more manageable. Has been passing gas, no bowel movements yet. O: Vital signs are stable, white cell count has gone down slightly. His abdomen still shows some suprapubic tenderness, but markedly improved since yesterday evening's exam. A: Responding well to current therapy P: Advance diet slightly today. Encourage ambulation. Will order an incentive spirometer for patient. Repeat CBC and clinical exam in AM. Patient seems happy with his progress.
[2024-03-24] MEDS ORDERED: BISACODYL E.C. 5 MG TAB PO PRN (15:39)
[2024-03-24] MEDS: HYDROCODONE/APAP 7.5/325 MG TAB PO PRN (16:02)
[2024-03-24] MEDS ORDERED: ZOLPIDEM TARTRATE 5 MG TABLET PO PRN (20:28)
[2024-03-25 04:59] LABS: Absolute Eosinophils 0.2 K/uL (0-0.5); Absolute Lymphocytes (CBC) 1.2 K/uL (0.7-4.9); Absolute Monocytes 0.3 K/uL (0.1-1.3); Absolute Neutrophil 2.8 K/uL (1.8-8.0); Basophils % 0.4 % (0-1.3); Eosinophils % 3.7 % (0-4.4); Hematocrit 36.6 % (39.6-49.0); Hemoglobin 12.3 g/dL (13.6-17.9); Lymphocytes % 26.4 % (15.3-44.8); MCH 29.8 pg (27.0-35.0); MCHC 33.5 g/dL (32.0-36.0); MPV 7.8 fL (7.6-11.3); Monocytes % 6.8 % (3.3-12.3); Neutrophils % 62.7 % (41.7-73.7); Platelets 160 thou/uL (152-406); RBC Red Blood Cell Count 4.11 M/uL (4.33-5.43); Red Cell Distribution Width 13.3 % (12.1-15.2)
[2024-03-25 05:16] LABS: Anion Gap 6.8 mEq/L (5.0-15.0); Magnesium 1.9 mg/dL (1.6-2.4); Phosphorus 2.2 mg/dL (2.5-4.9); Potassium 3.8 mEq/L (3.5-5.1)
[2024-03-25] MEDS: POTASSIUM CL SA 10 MEQ TAB PO ONE (08:23)
[2024-03-25] MEDS: POTASS/SODIUM PHOSPHATE 1 PKT POWD.PACK PO SCH (08:24)
--- NOTE | 2024-03-25 09:26 | RAD REPORT ---
EXAM DESCRIPTION: CTAbdomen Pelvis W Contrast - 03/25/2024 8:49 am CLINICAL HISTORY: Abdominal pain. diverticulitis COMPARISON: Abdomen Pelvis W Contrast dated 03/23/2024 TECHNIQUE: Venous phase CT imaging of the abdomen and pelvis was performed with 100 ml non-ionic IV contrast. All CT scans are performed using dose optimization technique as appropriate and may include automated exposure control or mA/KV adjustment according to patient size. FINDINGS: The lung bases are clear.Mild thickening of the distal esophagus. The liver, spleen, pancreas, adrenal glands and kidneys are within normal limits. No bowel obstruction, free air, free fluid or abscess. Since the 03/23/2024 study previously noted di verticulitis has moderately improved. Mild inflammation persists in the region. No abscess. The appen isauro is normal. No evidence of significant lymphadenopathy. No suspicious bony findings. IMPRESSION: Since the 03/23/2024 study, there has been moderate improvement in left lower quadrant s igmoid diverticulitis. No complication is visualized. Follow-up nonemergent colonoscopy would be advised.
--- NOTE | 2024-03-25 10:19 | P.PN ---
Date of Service: 03/25/24 Subjective Feeling better this AM CT scan showing improvement Will increase diet to fiber restrictive and monitor tolerance ROS 10 point ROS as noted above, otherwise negative Physical Exam General: AAO x3, NAD afebrile HEENT: Atraumatic, Normocephalic, PERRLA Neck: Supple, 2+ carotid pulse no bruit, JVD not distended Respiratory: Clear to auscultation bilaterally, nonlabored breathing, on RA Cardiovascular: No edema, Regular rate and rhythm, Normal S1 S2, no murmur noted Capillary refill: <2 Seconds Gastrointestinal: Normal active bowel sounds, soft on palpation, distended, Tenderness Musculoskeletal: No clubbing Integumentary: No rashes Vitals Reviewed Problem list Acute sigmoid diverticulitis without perforation or abscess Lower abdominal pain Nausea Substance abuse Assessment and Plan Acute sigmoid diverticulitis without perforation or abscess Lower abdominal pain Nausea -Dr. Finn following, no surgery needed -continue IV fluids -N.p.o. advanced to FLD and tolerated well, advance to fiber restrictive at lunch -continue Cipro and Flagyl -Pain control/ antiemetics -Continuous telemetry -Reports clean colonoscopy several years ago, father of colon cancer -Follow up for colonoscopy Substance abuse -Cigarettes, vape, and drinking beer -Cessation education provided DVT PPx SCDs Full code LOS 2 days Discharge Plan: Home Plan to discharge in: 48 Hours
--- NOTE | 2024-03-25 10:42 | P.DS ---
Admission Date: 03/23/24 Discharge Date: 03/25/24 Disposition: ROUTINE DISCHARGE Discharge Condition: FAIR Reason for Admission: Acute diverticulitis, acute abdomen Brief History of Present Illness: Diagnosis Acute sigmoid diverticulitis without perforation or abscess Lower abdominal pain Nausea Substance abuse HPI 03/23/24 Flo Sinhg is a 48 year old male with no significant past medical history w ho presents to the ED with chief complaint of upper and lower abdominal distention and pain that started 1 day ago. He reports standing up from the couch to plug in his computer when severe lower abdominal pain occurred causing his to lay down in bed. He reports trying ex-lax without relief. CT abdomen pelvis with contrast reports "Findings of acute sigmoid diverticulitis, without discrete extraluminal gas or abnormal collections." He states he had a clean colonoscopy a few years ago and was examined early since his father of colon cancer. He also has family history of heart attacks, his father's fifth heart attack started with abdominal pain and he was worried he was having a heart attack. He reports PND, exertional SOB and occasional leg swelling, but not exertional SOB. Laboratory evaluation unremarkable, initial vital BP 128 / 86; Pulse 92; Resp 17, temp 99; Pulse Ox 100%, lung sounds clear bilaterally on room air, afebrile. Flo will be admitted to hospitalist service for further treatment of acute sigmoid diverticulitis, Dr. Finn consulted. Hospital Course: Flo Singh is a pleasant 48 year old male with a past medical history sign ificant for no significant who was admitted to the [facility] on 03/23/24 for severe Abdominal pain. Flo presented to the ED with complaint of severe lower abdominal pain. CT abd/pelvis showed sigmoid diverticulitis. He was made NPO and Dr. Finn was consulted. Dr. Finn deteremted that no surgical intervention was needed and he was able to advance his diet successfully to FLD. He has been ambulating in the hallway independently and tolerating IV antibiotics. He reports pain is well controlled and has decreased some. His repeat CT scan this morning (03/25) shows some improvement and he will be discharged with plans to follow up with Dr. Figueroa for a colonoscopy and closer management. Substance abuse education provided. On 03/25/24, Flo was seen on morning rounds and deemed medically stable for discharge. Flo was discharged with instructions to schedule follow-up appointments with Dr. Figueroa and PCP. Flo was provided prescriptions for [place], flagyl, and cipro. Physical Exam General: AAO x3, NAD afebrile HEENT: Atraumatic, Normocephalic, PERRLA Neck: Supple, 2+ carotid pulse no bruit, JVD not distended Respiratory: Clear to auscultation bilaterally, nonlabored breathing, on RA Cardiovascular: No edema, Regular rate and rhythm, Normal S1 S2, no murmur noted Capillary refill: <2 Seconds Gastrointestinal: Normal active bowel sounds, soft on palpation, distended, Tenderness Musculoskeletal: No clubbing Integumentary: No rashes Vital Signs/Physical Exam: Temp Pulse Resp BP Pulse Ox 97.1 F 65 18 104/59 L 98 03/25/24 08:00 03/25/24 08:00 03/25/24 08:00 03/25/24 08:00 03/25/24 08:00 Laboratory Data at Discharge: WBC 4.40 thou/uL (4.3-10.9) 03/25/24 04:38 Hgb 12.3 g/dL (13.6-17.9) L 03/25/24 04:38 Hct 36.6 % (39.6-49.0) L 03/25/24 04:38 Plt Count 160 thou/uL (152-406) 03/25/24 04:38 Sodium 139 mEq/L (136-145) 03/25/24 04:38 Potassium 3.8 mEq/L (3.5-5.1) 03/25/24 04:38 BUN 9 mg/dL (7-18) 03/25/24 04:38 Creatinine 0.87 mg/dL (0.70-1.30) 03/25/24 04:38 Glucose 88 mg/dL (74-106) 03/25/24 04:38 Phosphorus 2.2 mg/dL (2.5-4.9) L 03/25/24 04:38 Magnesium 1.9 mg/dL (1.6-2.4) 03/25/24 04:38 Total Bilirubin 0.7 mg/dL (0.2-1.0) 03/23/24 13:10 AST 12 U/L (15-37) L 03/23/24 13:10 ALT 37 U/L (16-61) 03/23/24 13:10 Alkaline Phosphatase 77 U/L (45-117) 03/23/24 13:10 Lipase 26 U/L (13-75) 03/23/24 13:10 Home Medications: Ciprofloxacin HCl [Cipro] 500 mg PO BID #24 tab 03/25/24 Hydrocodone 7.5/APAP 325 [[place] 7.5/325 mg*] 1 tab PO Q6H PRN #15 tab 03/25/24 metroNIDAZOLE [Flagyl] 500 mg PO Q8H #36 tab 03/25/24 New Medications: Ciprofloxacin HCl [Cipro] 500 mg PO BID #24 tab metroNIDAZOLE [Flagyl] 500 mg PO Q8H #36 tab Hydrocodone 7.5/APAP 325 [[place] 7.5/325 mg*] 1 tab PO Q6H PRN #15 tab PRN Reason: Pain Scale 5-7 (Moderate) Physician Discharge Instructions: Flo Singh was treated for sigmoid diverticulitis. Improvement was seen on the CT abd/pelvis shows some improvement. Continue with cautious diet advancement. Full liquid to fiber restrictive/GI soft. Please see Dr. Figueroa to schedule a colonoscopy, typically required after six weeks of healing. But please stay in contact with Dr. Figueroa's office close monitoring. 1. Please call and schedule a follow-up appointment with your PCP in 3-5 days - Please follow-up with your PCP for medication refills/adjustments 2. Please call and schedule a follow-up appointment with Dr. Figueroa in 3-5 days 3. Continue fiber restricted diet, soft GI 4. activity restrictions, do not lift greater than 10 pounds 5. Return to the ED if symptoms worsen New medications [place] 7.5 mg p.o. every 6 hours Ciprofloxacin 500 mg p.o. twice daily x 12 days Flagyl 500 mg p.o. every 8 hours x 12 days Diet: Slow advan Activity: No lifting more than 10 lbs Followup: Kym Vaughn FNP [Primary Care Provider] - Rajeev Figueroa MD [ASSOCIATE-ACTIVE - CAN ADMIT] -
[2024-03-25 11:57] VITALS: BP 100/59; TEMP 97
--- NOTE | 2024-03-25 17:04 | EKG ---
Test Date: 2024-03-23 Test Time: 13:20:03 [place] Cutter: YAMIL MEASUREMENT RESULTS: Intervals: Rate: 88 NH: 178 QRSD: 86 QT: 338 QTc: 408 [place]: P: 47 NH: 178 QRS: 51 T: -12 INTERPRETIVE STATEMENTS: Normal sinus rhythm T wave abnormality, consider inferior ischemia Abnormal ECG No previous ECG available for comparison Electronically Signed On 03-25-24 17:00:05 CDT by Nick Montelongo
== END 2024-03-25 13:40 | disposition home or self-care (01) | DRG 392 ==
LOC: ER 11:29 → ERHOLD 15:59 → 2ND 16:47
PROVIDERS: ADMIT Internal Medicine; ATTEND Internal Medicine
DX: K57.32 Diverticulitis of large intestine without perforation or abscess without bleeding (principal); F17.210 Nicotine dependence, cigarettes, uncomplicated; R11.0 Nausea
CPT/HCPCS: 36415; 74177; 80048; 80053; 81003; 83690; 83735; 84100; 84484; 85025; 93005; 96361; 96365; 96375; 99285; J0696; J0744; J2405; J2470; J7030; Q9967